=== PATIENT | male | born 1995 | race Caucasian/White ===

== ENCOUNTER 2025-06-03 17:02 | Observation (INO) ==
--- NOTE | 2025-06-03 18:42 | DR.N/VMALE ---
HPI Time Seen Time Seen by Provider: 06/03/25 18:41 Primary Care Physician Primary Care Physician: Dr. Sellers HPI Comment HPI Comment: Patient with complaint of nausea and vomiting as well as diarrhea today. Patient states she has had some family members that have been sick over the last 2 days. Patient states after he vomited all the food he did have some blood in his vomit. He denies any abdominal pain other than maybe a little bit of achiness in the lower abdomen. Denies fever. Complaints Chief Complaint:: pt states that he started to have n/v and diarrhea today. he states he has had a few episodes of bloody emesis, but denies any pain COVID-19 Coronavirus risk:travel/contact w/high risk person: No Has patient experienced Coronavirus symptoms: No Source History Provided: Patient Mode of Arrival Mode of Arrival: Ambulatory Timing Onset of Chief Complaint: 06/03/25 PMH PMH Past Medical History: No Past Surgical History: Yes Surgical History: Ortho Surgery and Tonsillectomy Family History History of Family Medical Conditions: Yes Family Medical History: Hypertension Family Medical History Comment: stroke Social History Type of Tobacco Use: Vape Alcohol Use: DAILY Do you use any recreational Drugs:: No Lives With: Family Lives Where: Home Travel Risk Coronavirus risk:travel/contact w/high risk person: No Has patient experienced Coronavirus symptoms: No Infectious screening Have you traveled outside the country in the last 6 months?: No Isolation: Standard ROS Review of Systems Constitutional: No Symptoms Reported Eyes: No Symptoms Reported ENTM: No Symptoms Reported Respiratoy: No Symptoms Reported Cardiovascular: No Symptoms Reported Gastrointestinal/Abdominal: See HPI Genitourinary: No Symptoms Reported Neurological: No Symptoms Reported Musculoskeletal: No Symptoms Reported Integumentary: No Symptoms Reported Hematologic/Lymphatic: No Symptoms Reported Endocrine: No Symptoms Reported Psychiatric: No Symptoms Reported All Other Systems: Reviewed and Negative PE Vital Signs Vitals: Vital Signs Temperature 97.5 F Pulse Rate [Brachial] 98 Pulse Rate 110 Respiratory Rate 20 Respiratory Rate 22 Blood Pressure [Right Arm] 100/69 Blood Pressure 132/82 O2 Sat by Pulse Oximetry 97 O2 Sat by Pulse Oximetry 99 General Limitations: No Limitations General Appearance: Alert and In No Apparent Distress Head Head Exam: Normal Inspection Eyes Eye exam: Normal Appearance ENT ENT Exam: Normal Exam Neck Neck Exam: Normal Inspection Chest Chest Inspection: Normal Inspection Respiratory Respiratory Exam: Normal Lung Sounds Bilat Respiratory Exam: Bilateral: Clear to Auscultation Cardiovascular Cardiovascular Exam: Regular Rate and Normal Rhythm Abdominal Exam Abdominal Exam: Normal Inspection, Normal Bowel Sounds, Soft and Tenderness (Mild tenderness generalized throughout lower abdomen); negative Distention, Guarding, Rebound, Rigidity, Organomegaly or Ascites Rectal Rectal Exam: Deferred Exam: Male: Deferred Extremities Extremities Exam: Normal Inspection Back Back Exam: Normal Inspection Neurologic Neurological Exam: Alert and Oriented X3 Psychiatric Psychiatric Exam: Normal Affect and Normal Mood Skin Skin Exam: Warm, Dry, Intact and Normal Color COURSE Treatment Treatment: Discussed results of workup with patient. Patient's symptoms have improved with fluids and Zofran. Patient has not had any more bouts of emesis so we will hold off on NG tube for now. Starting Zosyn and metronidazole given infectious enteritis with elevated white count and patient's symptomatology. Patient agreeable to admission. Consultation Consultation Comments: Discussed case with Dr. Bridges and he is agreeable to admission. ROR Labs Reviewed Laboratory Results Reviewed?: Yes 06/03/25 18:45 06/03/25 18:45 Laboratory: WBC 17.9 X10^3/uL (3.6-10.0) H 06/03/25 18:45 RBC 5.66 X10^6/uL (4.7-6.0) 06/03/25 18:45 Hgb 18.1 g/dL (13.5-18.0) H 06/03/25 18:45 Hct 53.6 % (42.0-54.0) 06/03/25 18:45 MCV 94.7 fL (80.0-100.0) 06/03/25 18:45 MCH 32.1 pg (27.0-34.0) 06/03/25 18:45 MCHC 33.8 g/dL (33.0-35.0) 06/03/25 18:45 RDW 12.5 % (11.6-16.5) 06/03/25 18:45 Plt Count 317 X10^3/uL (150.0-450.0) 06/03/25 18:45 Plt Count Comment Adequate (ADEQUATE) 06/03/25 18:45 MPV 8.3 fL (7.4-11.0) 06/03/25 18:45 Neut % (Auto) 94.6 % (42.0-75.0) H 06/03/25 18:45 Lymph % (Auto) 1.8 % (21.0-51.0) L 06/03/25 18:45 [place] % (Auto) 3.0 % (0.0-13.0) 06/03/25 18:45 Eos % (Auto) 0.2 % (0.9-2.9) L 06/03/25 18:45 Baso % (Auto) 0.4 % (0.2-1.0) 06/03/25 18:45 Neut # (Auto) 16.9 x10^3/uL (2.2-4.8) H 06/03/25 18:45 Lymph # (Auto) 0.3 X10^3/uL (1.3-2.9) L 06/03/25 18:45 [place] # (Auto) 0.5 x10^3/uL (0.3-0.8) 06/03/25 18:45 Eos # (Auto) 0.0 x10^3/uL (0.0-0.2) 06/03/25 18:45 Baso # (Auto) 0.1 X10^3/uL (0.0-0.1) 06/03/25 18:45 Absolute Nucleated RBC 0.1 /100WBC 06/03/25 18:45 Total Counted 100 06/03/25 18:45 Neutrophils % (Manual) 93 % (39-76) H 06/03/25 18:45 Band Neutrophils % 1 % (0-10) 06/03/25 18:45 Lymphocytes % (Manual) 3 % (13-43) L 06/03/25 18:45 Monocytes % (Manual) 3 % (4-9) L 06/03/25 18:45 Plt Morphology Comment Normal (NORMAL) 06/03/25 18:45 RBC Morphology Normal (NORMAL) 06/03/25 18:45 Sodium 140 mmol/L (136-145) 06/03/25 18:45 Corrected Sodium TNP 06/03/25 18:45 Potassium 3.7 mmol/L (3.5-5.1) 06/03/25 18:45 Chloride 100 mmol/L (98-107) 06/03/25 18:45 Carbon Dioxide 28.8 mmol/L (21-32) 06/03/25 18:45 BUN 10 mg/dL (7-18) 06/03/25 18:45 Creatinine 0.83 mg/dL (0.70-1.30) 06/03/25 18:45 Est GFR (MDRD) Af Amer > 60 (>60) 06/03/25 18:45 Est GFR (MDRD) Non-Af > 60 (>60) 06/03/25 18:45 Glucose 93 mg/dL (65-99) 06/03/25 18:45 Calcium 8.8 mg/dL (8.5-10.1) 06/03/25 18:45 Corrected Calcium TNP 06/03/25 18:45 Magnesium 1.5 mg/dL (2.0-2.9) L 06/03/25 18:45 Total Bilirubin 0.90 mg/dL (0.2-1.0) 06/03/25 18:45 AST 24 Units/L (15-37) 06/03/25 18:45 ALT 30 Units/L (12-78) 06/03/25 18:45 Alkaline Phosphatase 82 Units/L (46-116) 06/03/25 18:45 Total Protein 8.6 g/dL (6.4-8.2) H 06/03/25 18:45 Albumin 4.6 g/dL (3.4-5.0) 06/03/25 18:45 Globulin 4.0 g/dL (2.5-4.5) 06/03/25 18:45 Albumin/Globulin Ratio 1.2 Ratio (1.1-2.1) 06/03/25 18:45 Specimen Type Clean catch urine 06/03/25 19:53 Urine Color Yellow (YELLOW) 06/03/25 19:53 Urine Appearance Slightly hazy (CLEAR) 06/03/25 19:53 Urine pH 6.0 (5.0 - 8.0) 06/03/25 19:53 Ur Specific [place] 1.015 (1.000-1.030) 06/03/25 19:53 Urine Protein 2+ (NEGATIVE) 06/03/25 19:53 Urine Glucose (UA) Negative (NEGATIVE) 06/03/25 19:53 Urine Ketones 4+ (NEGATIVE) 06/03/25 19:53 Urine Blood 2+ (NEGATIVE) 06/03/25 19:53 Urine Nitrite Negative (NEGATIVE) 06/03/25 19:53 Urine Bilirubin Negative (NEGATIVE) 06/03/25 19:53 Urine Urobilinogen Normal (NORMAL) 06/03/25 19:53 Ur Leukocyte Esterase Negative (NEGATIVE) 06/03/25 19:53 Urine RBC 5-10 /HPF (0-3) A 06/03/25 19:53 Urine WBC None seen /HPF (0-5) 06/03/25 19:53 Ur Squamous Epith Cells Rare /HPF (NEGATIVE) 06/03/25 19:53 Urine Bacteria Negative /HPF (NEGATIVE) 06/03/25 19:53 Ur Culture Indicated? No/not indicated 06/03/25 19:53 Other Results Comments: Name: MALU LEONARD : 1995 Sex: M Location: ER Order Number(s): [id number] Procedure(s):CT ABDOMEN/PELVIS W/O CON Ordering Physician: Donato Echeverria Primary Care: Alejandro Sellers Service Date: 06/03/25 Service Time: 1944 EXAM: CT ABDOMEN AND PELVIS WITHOUT CONTRAST HISTORY: pt states that he started to have n/v and diarrhea today. he states he has had a few episodes of bloody emesis, but denies any pain; COMPARISON: None. TECHNIQUE: Axial CT images were obtained through the abdomen and pelvis without contrast. Coronal reformatted images were included. All CT scans at this facility use dose modulation, iterative reconstruction, and/or weight based dosing when appropriate to reduce radiation dose to as low as reasonably achievable. FINDINGS: Technical note: Without the use of intravenous contrast, evaluation of solid abdominal viscera, vascular structures, urinary structures, and bowel is limited. LOWER THORAX: Unremarkable. ABDOMEN: LIVER: Unremarkable. GALLBLADDER: Unremarkable. SPLEEN: Unremarkable. PANCREAS: Unremarkable. KIDNEYS: Unremarkable. ADRENAL GLANDS: Unremarkable. ABDOMINAL AORTA: Unremarkable. LYMPH NODES: No evidence of enlarged nodes. GI TRACT: No evidence for intestinal obstruction. There appears to be a mild small bowel ileus pattern. Question mild mural thickening of some of the small bowel loops within the left abdomen may suggest enteritis, correlate clinically. No evidence for pneumatosis intestinalis. ASCITES: None. PNEUMOPERITONEUM: None. PELVIS: APPENDIX: Unremarkable. RECTOSIGMOID COLON: Unremarkable. BLADDER: Unremarkable GENITALS: Prostate is not enlarged. ASCITES: None. LYMPH NODES: No evidence for enlarged nodes. INGUINAL HERNIA: None. BONES: No evidence for acute osseous findings. IMPRESSION: There appears to be a mild small bowel ileus pattern. Question mild mural thickening of some of the small bowel loops within the left abdomen which may suggest enteritis, correlate clinically. THIS IS AN ELECTRONICALLY VERIFIED FINAL REPORT 06/03/2025 9:21 PM - Electronically signed by Ovidio Benson DO Opioid Opioid Risk Tool Age (Jaime box if 16-45): Yes History of Preadolescent Sexual Abuse: No Total: 1 Total Score Risk Category: Low Risk Copyright: [facility] [employer] predicting aberrant behaviors Discharge Plan Diagnosis Discharge Problem: Enteritis of small bowel, Ileus Discharge Plan Patient Disposition: 09 ADMITTED INPATIENT Condition: Stable Prescriptions: No Action [facility] Concerns: Post Hospitalization: new medications and changes needed to prevent readmission or further decline. Pt educated and given instructions on all concerns. Plan of Treatment: Continue with present treatment and follow up plan. Pt is to keep follow up appointment as instructed and take medications as ordered. Orders to Discharge Patient Discharge Orders: Transfer (Routine); Ordered 06/03/25 Ordered By: Donato Echeverria Follow ups/Referrals Follow ups/Referrals: Alejandro Sellers [Primary Care Provider, MEDICAL] - 3 days Instructions Stand Alone Forms: Find Help Web Site, Post Hospital Follow Up Care Print Language: [place]
[2025-06-03] MEDS: ZOFRAN INJ 4 MG VIAL IVP ONE (18:53)
[2025-06-03 18:59] LABS: MEAN PLATELET VOLUME 8.3 fL (7.4-11.0); RED CELL DISTRIBUTION WIDTH 12.5 % (11.6-16.5)
[2025-06-03 19:07] LABS: CREATININE 0.83 mg/dL (0.70-1.30); eGFR NON BLACK RACES > 60 (>60)
[2025-06-03] MEDS: NS 1,000 ML IV 1,000 ML IV ONE (19:08)
[2025-06-03 19:33] LABS: BAND NEUTROPHILS % 1 % (0-10)
[2025-06-03 19:35] LABS: PLATELET MORPHOLOGY COMMENT NORMAL (NORMAL)
[2025-06-03] MEDS: MAG-OX TAB PO ONE (20:04)
[2025-06-03 20:11] LABS: BLOOD/HEMOGLOBIN,URINE 2+ (NEGATIVE); LEUKOCYTE ESTERASE ,URINE NEGATIVE (NEGATIVE); NITRITES,URINE NEGATIVE (NEGATIVE)
[2025-06-03 20:12] LABS: APPEARANCE,URINE SLIGHTLY HAZY (CLEAR)
[2025-06-03 20:14] LABS: SQUAMOUS EPITHELIAL CELL,UR RARE /HPF (NEGATIVE)
--- NOTE | 2025-06-03 21:25 | CT ---
EXAM: CT ABDOMEN AND PELVIS WITHOUT CONTRAST HISTORY: pt states that he started to have n/v and diarrhea today. he states he has had a few episodes of bloody emesis, but denies any pain; COMPARISON: None. TECHNIQUE: Axial CT images were obtained through the abdomen and pelvis without contrast. Coronal reformatted images were included. All CT scans at this facility use dose modulation, iterative reconstruction, and/or weight based dosing when appropriate to reduce radiation dose to as low as reasonably achievable. FINDINGS: Technical note: Without the use of intravenous contrast, evaluation of solid abdominal viscera, vascular structures, urinary structures, and bowel is limited. LOWER THORAX: Unremarkable. ABDOMEN: LIVER: Unremarkable. GALLBLADDER: Unremarkable. SPLEEN: Unremarkable. PANCREAS: Unremarkable. KIDNEYS: Unremarkable. ADRENAL GLANDS: Unremarkable. ABDOMINAL AORTA: Unremarkable. LYMPH NODES: No evidence of enlarged nodes. GI TRACT: No evidence for intestinal obstruction. There appears to be a mild small bowel ileus pattern. Question mild mural thickening of some of the small bowel loops within the left abdomen may suggest enteritis, correlate clinically. No evidence for pneumatosis intestinalis. ASCITES: None. PNEUMOPERITONEUM: None. PELVIS: APPENDIX: Unremarkable. RECTOSIGMOID COLON: Unremarkable. BLADDER: Unremarkable GENITALS: Prostate is not enlarged. ASCITES: None. LYMPH NODES: No evidence for enlarged nodes. INGUINAL HERNIA: None. BONES: No evidence for acute osseous findings. IMPRESSION: There appears to be a mild small bowel ileus pattern. Question mild mural thickening of some of the small bowel loops within the left abdomen which may suggest enteritis, correlate clinically. THIS IS AN ELECTRONICALLY VERIFIED FINAL REPORT 06/03/2025 9:21 PM - Electronically signed by Ovidio Benson DO
[2025-06-03] MEDS ORDERED: ZOSYN VIAL 3.375 GRAMS 3.375 G in NS 100 ML IV 100 ML IV ONE (21:46)
[2025-06-03] MEDS ORDERED: NS 250 ML IV 25 ML IV PRN (21:46)
[2025-06-03] MEDS ORDERED: NS 100 ML IV 100 ML ONE (21:51)
[2025-06-03] MEDS ORDERED: ZOSYN VIAL 3.375 GRAMS IV ONE (21:51)
[2025-06-03] MEDS: FLAGYL IV PREMIX 500 MG BAG 500 MG/100 ML BAG IV SCH (21:58)
[2025-06-03] MEDS ORDERED: ZOFRAN INJ 4 MG VIAL IVP PRN (22:50)
[2025-06-03] MEDS ORDERED: MORPHINE SULFATE INJ 2 MG INJ IVP PRN (22:50)
[2025-06-03] MEDS ORDERED: TYLENOL 325 MG TAB PO PRN (22:50)
[2025-06-03] MEDS ORDERED: ULTRAM PO PRN (22:50)
[2025-06-03] MEDS ORDERED: CONSULT PHARMACY - POTASSIUM & MAGNESIUM XX SCH (22:50)
[2025-06-03] MEDS ORDERED: NORCO 5/325 MG TAB PO PRN (22:50)
[2025-06-03] MEDS: NS 1,000 ML IV 1,000 ML IV SCH (23:56)
[2025-06-03] MEDS: CIPRO IV 400 MG PREMIX* 400 MG/200 ML IV.SOLN. IV SCH (23:56)
[2025-06-04] VITALS: BMI 23.6
[2025-06-04 00:54] VITALS: RESP 18
[2025-06-04] MEDS: K-RIDER 10 MEQ/100 ML WATER 10 MEQ/100 ML BAG IV SCH (01:05)
[2025-06-04] MEDS: MAGNESIUM SULFATE 1 GRAM/100 mL PREMIX 1 G/100 ML BAG IV ONE (02:29)
[2025-06-04 05:49] LABS: MEAN PLATELET VOLUME 8.2 fL (7.4-11.0); RED CELL DISTRIBUTION WIDTH 12.5 % (11.6-16.5)
[2025-06-04 06:05] LABS: CREATININE 0.75 mg/dL (0.70-1.30); eGFR NON BLACK RACES > 60 (>60)
[2025-06-04] MEDS ORDERED: CONSULT PHARMACY - POTASSIUM & MAGNESIUM XX SCH (07:00)
--- NOTE | 2025-06-04 08:28 | DR.H&P ---
H&P History & Physical for Day of: H&P Date: 06/03/25 Chief Complaint Chief Complaint: abdominal pain, nvd History of Present Illness History of Present Illness: Patient is 29 WM, ER admission with complaint of nausea and vomiting as well as diarrhea today. Patient states she has had some family members that have been sick over the last 2 days. Patient states after he vomited all the food he did have some blood in his vomit. He denies any abdominal pain other than maybe a little bit of achiness in the lower abdomen. Denies fever. Past Surgical History Surgical History: Ortho Surgery Family History Family Medical History: Hypertension Social History Does patient currently use any type of tobacco product: Yes Type of Tobacco Use: Vape How many years tobacco product used: 15 Does any household member use tobacco: No Alcohol Use: DAILY Drug Use: None Medications Home Medications: Home Medications Medication Instructions Recorded Confirmed Type NK 06/03/25 06/03/25 History Allergies Allergies Allergy/AdvReac Type Severity Reaction Status Date / Time Penicillins Allergy Verified 06/03/25 18:54 Labs 06/04/25 05:32 06/04/25 05:32 Labs: Laboratory WBC 11.4 X10^3/uL (3.6-10.0) H 06/04/25 05:32 RBC 5.08 X10^6/uL (4.7-6.0) 06/04/25 05:32 Hgb 16.6 g/dL (13.5-18.0) 06/04/25 05:32 Hct 47.3 % (42.0-54.0) 06/04/25 05:32 MCV 93.1 fL (80.0-100.0) 06/04/25 05:32 MCH 32.7 pg (27.0-34.0) 06/04/25 05:32 MCHC 35.1 g/dL (33.0-35.0) H 06/04/25 05:32 RDW 12.5 % (11.6-16.5) 06/04/25 05:32 Plt Count 276 X10^3/uL (150.0-450.0) 06/04/25 05:32 Plt Count Comment Adequate (ADEQUATE) 06/03/25 18:45 MPV 8.2 fL (7.4-11.0) 06/04/25 05:32 Neut % (Auto) 87.0 % (42.0-75.0) H 06/04/25 05:32 Lymph % (Auto) 4.7 % (21.0-51.0) L 06/04/25 05:32 [place] % (Auto) 7.2 % (0.0-13.0) 06/04/25 05:32 Eos % (Auto) 0.7 % (0.9-2.9) L 06/04/25 05:32 Baso % (Auto) 0.4 % (0.2-1.0) 06/04/25 05:32 Neut # (Auto) 10.0 x10^3/uL (2.2-4.8) H 06/04/25 05:32 Lymph # (Auto) 0.5 X10^3/uL (1.3-2.9) L 06/04/25 05:32 [place] # (Auto) 0.8 x10^3/uL (0.3-0.8) 06/04/25 05:32 Eos # (Auto) 0.1 x10^3/uL (0.0-0.2) 06/04/25 05:32 Baso # (Auto) 0.0 X10^3/uL (0.0-0.1) 06/04/25 05:32 Absolute Nucleated RBC 0.1 /100WBC 06/04/25 05:32 Total Counted 100 06/03/25 18:45 Neutrophils % (Manual) 93 % (39-76) H 06/03/25 18:45 Band Neutrophils % 1 % (0-10) 06/03/25 18:45 Lymphocytes % (Manual) 3 % (13-43) L 06/03/25 18:45 Monocytes % (Manual) 3 % (4-9) L 06/03/25 18:45 Plt Morphology Comment Normal (NORMAL) 06/03/25 18:45 RBC Morphology Normal (NORMAL) 06/03/25 18:45 Sodium 137 mmol/L (136-145) 06/04/25 05:32 Corrected Sodium TNP 06/04/25 05:32 Potassium 3.2 mmol/L (3.5-5.1) L 06/04/25 05:32 Chloride 100 mmol/L (98-107) 06/04/25 05:32 Carbon Dioxide 26.5 mmol/L (21-32) 06/04/25 05:32 BUN 8 mg/dL (7-18) 06/04/25 05:32 Creatinine 0.75 mg/dL (0.70-1.30) 06/04/25 05:32 Est GFR (MDRD) Af Amer > 60 (>60) 06/04/25 05:32 Est GFR (MDRD) Non-Af > 60 (>60) 06/04/25 05:32 Glucose 91 mg/dL (65-99) 06/04/25 05:32 Calcium 7.6 mg/dL (8.5-10.1) L 06/04/25 05:32 Corrected Calcium TNP 06/04/25 05:32 Magnesium 1.8 mg/dL (2.0-2.9) L 06/04/25 05:32 Magnesium Cancelled 06/04/25 05:32 Total Bilirubin 0.90 mg/dL (0.2-1.0) 06/04/25 05:32 AST 21 Units/L (15-37) 06/04/25 05:32 ALT 23 Units/L (12-78) 06/04/25 05:32 Alkaline Phosphatase 69 Units/L (46-116) 06/04/25 05:32 Total Protein 7.1 g/dL (6.4-8.2) 06/04/25 05:32 Albumin 3.6 g/dL (3.4-5.0) 06/04/25 05:32 Globulin 3.5 g/dL (2.5-4.5) 06/04/25 05:32 Albumin/Globulin Ratio 1.0 Ratio (1.1-2.1) L 06/04/25 05:32 Specimen Type Clean catch urine 06/03/25 19:53 Urine Color Yellow (YELLOW) 06/03/25 19:53 Urine Appearance Slightly hazy (CLEAR) 06/03/25 19:53 Urine pH 6.0 (5.0 - 8.0) 06/03/25 19:53 Ur Specific [place] 1.015 (1.000-1.030) 06/03/25 19:53 Urine Protein 2+ (NEGATIVE) 06/03/25 19:53 Urine Glucose (UA) Negative (NEGATIVE) 06/03/25 19:53 Urine Ketones 4+ (NEGATIVE) 06/03/25 19:53 Urine Blood 2+ (NEGATIVE) 06/03/25 19:53 Urine Nitrite Negative (NEGATIVE) 06/03/25 19:53 Urine Bilirubin Negative (NEGATIVE) 06/03/25 19:53 Urine Urobilinogen Normal (NORMAL) 06/03/25 19:53 Ur Leukocyte Esterase Negative (NEGATIVE) 06/03/25 19:53 Urine RBC 5-10 /HPF (0-3) A 06/03/25 19:53 Urine WBC None seen /HPF (0-5) 06/03/25 19:53 Ur Squamous Epith Cells Rare /HPF (NEGATIVE) 06/03/25 19:53 Urine Bacteria Negative /HPF (NEGATIVE) 06/03/25 19:53 Ur Culture Indicated? No/not indicated 06/03/25 19:53 Review of Systems Constitutional: Weakness Eyes: No Symptoms Reported ENT: No Symptoms Reported Respiratory: No Symptoms Reported Cardiovascular: No Symptoms Reported Gastrointestinal: Nausea, Vomiting, Abdominal Pain and Diarrhea Genitourinary: No Symptoms Reported Musculoskeletal: No Symptoms Reported Skin: No Symptoms Reported Neurological: No Symptoms Reported Physical Exam Vital Signs: Vital Signs Temperature 99 F Temperature 100 F Pulse Rate [Brachial] 98 Pulse Rate [Brachial] 94 Respiratory Rate 18 Respiratory Rate 18 Blood Pressure [Left Arm] 102/61 Blood Pressure [Left Arm] 115/64 O2 Sat by Pulse Oximetry 98 O2 Sat by Pulse Oximetry 96 Oriented: Normal Eyes: Normal Ear: Normal Nose: Normal Throat: Dry Respiratory: Clear Throughout Cardiovascular: Normal : Normal Auscultation: Bowel Sounds: Increased Palpation: Normal Tenderness: RUQ, LUQ and Epigastric Skin: Normal Musculoskeletal: Normal Psychiatric: Normal Mood Description: Calm Affect: Normal Speech Pattern: Clear and Appropriate Assessment/Plan (1) Enteritis of small bowel: Status: Acute Plan: admit, npo, iv hydration ct abd pelvis on er evaluation prn pain control, nausea control stool studies iv atbx with cipro and flagyl repeat am labs and abd series (2) Ileus: Status: Acute
[2025-06-04] MEDS: PROTONIX INJ 40 MG VIAL IVP SCH (08:45)
[2025-06-04] MEDS: NS + KCL 20 MEQ/L 1,000 ML with MAGNESIUM SULFATE 50% INJ VIAL 1 G IV SCH (08:45)
[2025-06-04] MEDS ORDERED: K-DUR TAB 20 MEQ PO SCH (09:00)
[2025-06-04] MEDS ORDERED: MAG-OX TAB PO SCH (09:00)
--- NOTE | 2025-06-04 11:45 | RAD ---
EXAM: ACUTE ABDOMEN SERI ES HISTORY: FOLLOW UP, ILEUS; COMPARISON: CT dated 06/03/2025 TECHNIQUE: AP chest; AP abdomen, supine and upright FINDINGS: Unremarkable cardiac silhouette. No focal consolidation, pleural effusion, or pneumothorax. No abnormally distended bowel loops. No free peritoneal air. No abnormal calcifications. Mild colonic stool burden. IMPRESSION: No acute findings. Normal bowel gas pattern. THIS IS AN ELECTRONICALLY VERIFIED FINAL REPORT 06/04/2025 11:42 AM - Electronically signed by Stewart Deras MD
[2025-06-04 11:51] LABS: CRYPTOSPORIDIUM PARVUM ANTIGEN NEGATIVE (NEGATIVE); GIARDIA LAMBLIA ANTIGEN NEGATIVE (NEGATIVE)
[2025-06-04 12:04] VITALS: BP 114/76; PULSE 92; TEMP 98.4; O2SAT 96
== END 2025-06-04 13:55 | disposition home or self-care (01) ==
LOC: MED/SURG 17:11 → ER 17:11 → MED/SURG 22:39
PROVIDERS: ADMIT Internal Medicine; ATTEND Internal Medicine
DX: R10.9 Unspecified abdominal pain; R82.998 Other abnormal findings in urine; Z72.0 Tobacco use; R11.2 Nausea with vomiting, unspecified; E87.6 Hypokalemia; D72.829 Elevated white blood cell count, unspecified; R19.7 Diarrhea, unspecified; E83.42 Hypomagnesemia; K52.89 Other specified noninfective gastroenteritis and colitis; R79.89 Other specified abnormal findings of blood chemistry; K92.0 Hematemesis; K92.1 Melena; K56.7 Ileus, unspecified; F10.90 Alcohol use, unspecified, uncomplicated; E83.51 Hypocalcemia